=== PATIENT | female | born 1970 | race Caucasian/White ===

== ENCOUNTER 2018-04-05 11:42 | Emergency (ER) | payer BC ==
[~2018-04-05] VITALS: Ht 167.6 cm; Wt 63.6 kg
[2018-04-05 11:46] VITALS: BP 101/78
--- NOTE | 2018-04-05 11:52 | NUR ---
PT AMBULATES TO BED 8
--- NOTE | 2018-04-05 11:55 | NUR ---
EKG BEING PERFROMED BY LOLA MIGUEL AT BEDSIDE.
--- NOTE | 2018-04-05 11:55 | NUR ---
48 YO F BIB FAMILY W/ C/O CHEST PAIN AND DIFFICULTY BREATHING X A FEW DAYS. PT STATES THE PAIN STARTS AT HER LEFT RIBS AND WRAPS ALL AROUND HER BODY. STATES THE PAIN IS WORSE TODAY. PT OF [facility] W/ NODULES IN HER LUNGS, PT WORRIED THAT SHE HAS FLUID IN THE NODULES. CALLED [facility] AND TOLD TO GO TO ER. PT VSS, PULSE ELEVATED 114. AAOX4, GCS 15. AMBULATORY W/ STEADY GAIT. PT SPEAKING IN FULL, COMPLETE SENTENCES. COLOR APPROPRIATE FOR ETHNICITY. RR EVEN AND UNLABORED. LAST RADIATION [place] LAST YEAR. REPORTS NAUSEA AND CHILLS, DENIES VOMITING AND FEVER. 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
--- NOTE | 2018-04-05 12:18 | NUR ---
Patient being evaluated by physician at bedside.
[2018-04-05] MEDS ORDERED: ONDANSETRON 4 MG ODT PO ONE (12:25)
[2018-04-05] MEDS ORDERED: HYDROcodone/APAP 5/325 MG 1 TAB TAB PO ONE (12:25)
--- NOTE | 2018-04-05 12:33 | NUR ---
PT TAKEN TO CT VIA WHEELCHAIR
--- NOTE | 2018-04-05 14:00 | NUR ---
PT RESTING IN BED WITH FAMILY AT THE BEDSIDE. LEGS UNCROSSED. PT TALKING WITH FAMILY, HANDS CROSSED.
--- NOTE | 2018-04-05 14:47 | NUR ---
PT MOVED TO CHAIR E AT THIS TIME STATING SHE IS READY TO GO AND FEEL UNCOMFORTABLE BECAUSE THE PT IN BED 8 IS YELLING.
[2018-04-05 15:00] VITALS: BP 104/71
--- NOTE | 2018-04-05 15:00 | NUR ---
Patient discharged with v/s stable. Written and verbal after care instructions given and explained. Patient alert, oriented and verbalized understanding of instructions. Ambulatory with steady gait. All questions addressed prior to discharge. ID band removed. Patient advised to follow up with PMD. Rx of MIRALAX TRINIDAD,ZOFRAN,MORPHINE given. Patient educated on indication of medication including possible reaction and side effects. Opportunity to ask questions provided and answered.
== END 2018-04-05 15:00 | disposition home or self-care (01) ==
LOC: MED 11:42
DX: S22.31XA Fracture of one rib, right side, initial encounter for closed fracture (principal); S22.32XA Fracture of one rib, left side, initial encounter for closed fracture; C78.01 Secondary malignant neoplasm of right lung; C78.02 Secondary malignant neoplasm of left lung; R22.0 Localized swelling, mass and lump, head; M54.9 Dorsalgia, unspecified; Z85.118 Personal history of other malignant neoplasm of bronchus and lung; X58.XXXA Exposure to other specified factors, initial encounter; Y93.89 Activity, other specified; Y92.89 Other specified places as the place of occurrence of the external cause; Y99.8 Other external cause status
CPT/HCPCS: 71250; 81002; 81025; 93005; 99284; Q0162